=== PATIENT | male | born 1980 | race Two or more races ===

== ENCOUNTER 2021-04-08 21:07 | Emergency (ER) | payer SELFPAY ==
[~2021-04-08] VITALS: Ht 154.9 cm; Wt 90.9 kg
--- NOTE | 2021-04-08 21:55 | NUR ---
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 pt told this rn his history, and when erp asked the same question pt keep changing his story. pt repeatedly asking if we want to see his fake id. erp at bedside
[2021-04-08 23:16] VITALS: BP 124/82
== END 2021-04-09 23:19 | disposition home or self-care (01) ==
LOC: ED 23:13 → EDSEX 04-09 → ED 04-09
DX: F15.20 Other stimulant dependence, uncomplicated (principal); R06.02 Shortness of breath; R00.0 Tachycardia, unspecified; Z72.9 Problem related to lifestyle, unspecified
CPT/HCPCS: 71046; 99283

== ENCOUNTER 2021-04-15 21:24 | Emergency (ER) | payer SELFPAY ==
[~2021-04-15] VITALS: Ht 154.9 cm; Wt 85.5 kg
[2021-04-15 23:51] LABS: BASOPHILS % (AUTO) 1 % (0-1); EOSINOPHILS % (AUTO) 1 % (1-7); LYMPHOCYTES % (AUTO) 46 % (22-44); MEAN CORPUSCULAR HEMOGLOBIN 27.8 pg (27.5-34.5); MEAN CORPUSCULAR HGB CONC 33.5 g/dL (33.2-36.2); MONOCYTES % (AUTO) 11 % (2-9); NEUTROPHILS % (AUTO) 42 % (42-75); PLATELET COUNT 333 x10^3/uL (130-400); RED BLOOD COUNT 5.09 x10^6/uL (4.38-5.82); RED CELL DISTRIBUTION WIDTH 13.2 % (9.4-14.8)
[2021-04-15 23:52] LABS: MD NO
[2021-04-15 23:59] LABS: ALBUMIN 4.1 g/dL (3.4-5.0); ANION GAP 7 mmol/L (5-15); CALCIUM 8.9 mg/dL (8.5-10.1); CHLORIDE 107 mmol/L (98-107)
[2021-04-16 00:02] VITALS: BP 128/87
[2021-04-16 00:12] LABS: ALANINE AMINOTRANSFERASE 51 U/L (12-78); ALKALINE PHOSPHATASE 99 U/L (45-117); BILIRUBIN,TOTAL 0.5 mg/dL (0.2-1.0); CREATININE 1.28 mg/dL (0.7-1.3); TOTAL PROTEIN 8.3 g/dL (6.4-8.2)
[2021-04-16 00:26] LABS: FREE T4 (FREE THYROXINE) 1.55 ng/dL (0.76-1.46)
--- NOTE | 2021-04-16 00:27 | NUR ---
PT REPORTS THAT HE HAS SLEEP APNEA ANDIS CONCERNED ABOUT SECRETIONS THAT HE IS HAVING WHILE HE IS ASLEEP AND THE COMPLICATIONS THAT MAY OCCUR. APPOINTMENT W/ PCP & PSYCHIATRIST April AT [facility]. DOESN'T THINK HE CAN WAIT THAT LONG.
--- NOTE | 2021-04-16 01:13 | NUR ---
Patient given discharge instructions and they have confirmed that they understand the instructions. Patient ambulatory with steady gait.
== END 2021-04-16 01:15 | disposition home or self-care (01) ==
LOC: ED 22:00
DX: F20.0 Paranoid schizophrenia (principal); F15.10 Other stimulant abuse, uncomplicated; G47.33 Obstructive sleep apnea (adult) (pediatric); Z72.9 Problem related to lifestyle, unspecified; R00.0 Tachycardia, unspecified; F17.200 Nicotine dependence, unspecified, uncomplicated
CPT/HCPCS: 36415; 71045; 80053; 80299; 80320; 80329; 84439; 84443; 85025; 93005; 99285; G0480

== ENCOUNTER 2021-06-05 22:21 | Emergency (ER) | payer MEDICAID ==
[~2021-06-05] VITALS: Ht 154.9 cm; Wt 86.9 kg
[2021-06-05 22:26] VITALS: BP 132/67
[2021-06-05 23:28] LABS: BASOPHILS % (AUTO) 1 % (0-1); EOSINOPHILS % (AUTO) 1 % (1-7); LYMPHOCYTES % (AUTO) 38 % (22-44); MEAN CORPUSCULAR HGB CONC 33.3 g/dL (33.2-36.2); MEAN PLATELET VOLUME 7.1 fL (7.4-10.4); MONOCYTES % (AUTO) 9 % (2-9); NEUTROPHILS % (AUTO) 50 % (42-75); PLATELET COUNT 317 x10^3/uL (130-400); RED BLOOD COUNT 4.72 x10^6/uL (4.38-5.82); RED CELL DISTRIBUTION WIDTH 13.8 % (9.4-14.8)
--- NOTE | 2021-06-05 23:31 | NUR ---
pt states he is feeling suicidal. no plan. hx of same. states he drank bleach on in a suicide attempt. states he went to the hospital where they gave him "salt." he claims a hx of parinoid schizophrenia, depression, anxiety disorder, schizoeffective, bipolar. he takes a monthly injection of invega for mental illness. states he had surgery on his brain for his psych problems. pt is calm and cooperative. placed in a secure room with all belongings in psych locker. sitter at doorway for frequent checks. ambulatory with a steady gait
[2021-06-05 23:41] LABS: ALBUMIN 3.7 g/dL (3.4-5.0); ANION GAP 4 mmol/L (5-15); CALCIUM 8.9 mg/dL (8.5-10.1); CHLORIDE 106 mmol/L (98-107); CREATININE 1.07 mg/dL (0.7-1.3); SALICYLATE LEVEL < 1.7 mg/dL (2.8-20.0)
--- NOTE | 2021-06-05 23:44 | NUR ---
pt claims is has SI because he is frustrated and tired of the troubles of homelessness.
[2021-06-05] MEDS ORDERED: [UNRECOGNIZED DRUG - OTHER] IM (23:50)
[2021-06-05 23:55] LABS: AMPHETAMINE SCREEN, URINE Negative (Negative); BARBITURATE SCREEN, URINE Negative (Negative); BENZODIAZEPINE SCREEN, URINE Negative (Negative); CANNABINOID SCREEN, URINE Positive (Negative); COCAINE SCREEN, URINE Negative (Negative); METHADONE SCREEN, URINE Negative (Negative); OPIATE SCREEN, URINE Negative (Negative)
--- NOTE | 2021-06-06 02:18 | NUR ---
report to MEGA ryan
--- NOTE | 2021-06-06 02:27 | NUR ---
report from milly assumed care of pt, sitter out side [address], pt sleeping at this time
== END 2021-06-06 05:24 | disposition home or self-care (01) ==
LOC: ED 22:51
DX: F12.10 Cannabis abuse, uncomplicated (principal); Z72.9 Problem related to lifestyle, unspecified; F17.210 Nicotine dependence, cigarettes, uncomplicated; F20.9 Schizophrenia, unspecified
CPT/HCPCS: 36415; 80048; 80299; 80307; 80320; 80329; 82040; 85025; 99406; G0480